=== PATIENT | male | born 1990 | race Caucasian/White ===

== ENCOUNTER 2017-03-09 17:26 | Observation (INO) | payer SELFPAY ==
[2017-03-09] MEDS ORDERED: Famotidine IV* 10 MG/ML 2 ML (20 mg) ONE (18:42)
[2017-03-09] MEDS ORDERED: Lidocaine 2% PF * 5 ML VIAL ONE (18:42)
[2017-03-09] MEDS ORDERED: Dexamethasone IV* 4 MG/ML 1 ML (4 MG) ONE (18:42)
[2017-03-09] MEDS ORDERED: Midazolam* 1 MG/ML 5 ML VIAL (5 MG) ONE (18:42)
[2017-03-09] MEDS ORDERED: fentaNYL* 50 MCG/ML 5 ML VIAL (250 MCG VIAL) ONE (18:42)
[2017-03-09] MEDS ORDERED: Ketorolac INJ* 30 MG/ML 1 ML VIAL ONE (18:42)
[2017-03-09] MEDS ORDERED: Atracurium* 10 MG/ML 10 ML VIAL ONE (18:42)
[2017-03-09] MEDS ORDERED: Ondansetron INJ* 2 MG/ML VIAL ONE (18:42)
[2017-03-09] MEDS ORDERED: Propofol* 10 MG/ML 20 ML BTL IV PUSH ONE (18:42)
--- NOTE | 2017-03-09 18:47 | HP ---
H&P (Free Text) History and Physical: Surgery H & P Asked by [facility] to evaluate a pt. with abdominal pain and a CT suggestive of appendicitis. Mr. Millard is a 26 y.o. male who reports he began to have abdominal pain as a dull ache last night at about midnight. Then about 3 AM it hurt more sharply and in the low abdomen. This got worse and he went to [facility]. There he had a CT scan showing likely early appendicitis. He says he was throwing up a lot since 3 AM. He denies fever, diarrhea or constipation. He has never had anything like this happen before. He is hungry. PMHx: denies ROS: has had flu in past. Meds: denies NKDA FH: cancer in mother's family; appendicitis in siblings SH: neg. tob., neg. EtOH, neg. IVDA PE: general: WDWN male in NAD Vital Signs 03/09/17 17:29 Temperature 98.1 F Pulse Rate 98 Respiratory 20 Rate Blood Pressure 114/71 (mmHg) O2 Sat by Pulse 99 Oximetry HEENT: anicteric sclerae, dry oral mucosa, neg. cervical adenopathy lungs: clear to ausc. heart: reg. abd: good BS, tender with guarding worst in RLQ, but mildly diffusely ext: neg. cyanosis, edema, palpable PT pulses WBC: 15.3 CT: thickened inflammed appendix. A/P: Likely appendicitis. Will proceed to OR for laparoscopic appendectomy. I have explained the nature of surgery, its risks, benefits, and alternatives to the pt. He understands and agrees to proceed. Aren
[2017-03-09] MEDS ORDERED: Bupivacaine 0.25% EPI 200,000* 30 ML SDV ONE (18:50)
[2017-03-09] MEDS ORDERED: ceFOXitin 2 GM IVPREMIX* 2 GM/50 ML BAG ONE (18:55)
[2017-03-09] MEDS ORDERED: Ondansetron INJ* 2 MG/ML VIAL IV PRN ×2 (19:13→20:26)
[2017-03-09] MEDS ORDERED: oxyCODONE/Acetamin 5/325 MG* TAB PO PRN ×3 (19:13→20:25)
[2017-03-09] MEDS ORDERED: fentaNYL* 50 MCG/ML 2 ML VIAL (100 MCG VIAL) IV PRN (19:13)
[2017-03-09] MEDS ORDERED: HYDROmorphone* 1 MG/ML 1 ML SYR IV PRN (19:13)
[2017-03-09] MEDS ORDERED: DiMENhydriNATE IV* 50 MG/ML VIAL IV PUSH PRN (19:13)
--- NOTE | 2017-03-09 19:36 | ED ---
Viviane Almanzar Auryana, scribed for Garry Gage MD on 03/09/17 at 1752 . Abdominal Pain/Male - HPI Summary HPI Summary: 26 year old female presents with abdominal pain starting last night. Patient reports that the pain started in the RLQ but is now more diffuse. He also has nausea, and decreased appetite. He reports no food today - vomited 03:00 AM today. Food aggravates symptoms. Patient was seen at [facility] and [place] [facility] and [place]. - History of Current Complaint Chief Complaint: EDAbdPain Stated Complaint: ABD PAIN COMMING FROM [facility] Time Seen by Provider: 03/09/17 17:38 Hx Obtained From: Patient Onset/Duration: Gradual Onset, Lasting Days - 1, Still Present Timing: Constant Severity Initially: Moderate Severity Currently: Severe Pain Intensity: 8 Pain Scale Used: 0-10 Numeric Location: Diffuse, Discrete At: RLQ - initally but now diffuse Aggravating Factor(s): Food Associated Signs And Symptoms: Positive: Decreased Appetite, Nausea, Vomiting. Negative: Fever - Allergies/Home Medications Allergies/Adverse Reactions: Allergies Allergy/AdvReac Type Severity Reaction Status Date / Time No Known Allergies Allergy Verified 03/09/17 17:33 PMH/Surg Hx/FS Hx/Imm Hx Previously Healthy: Yes Endocrine/Hematology History: Denies: Hx Diabetes Infectious Disease History: No Infectious Disease History: Denies: Traveled Outside the [place] in Last 30 Days - Family History Known Family History: Negative: Cardiac Disease, Hypertension, Diabetes - Social History Alcohol Use: Rare Hx Substance Use: No Substance Use Type: Reports: None Hx Tobacco Use: No Smoking Status (MU): Never Smoked Tobacco Review of Systems Constitutional: Negative Negative: Fever Eyes: Negative ENT: Negative Cardiovascular: Negative Respiratory: Negative Positive: Abdominal Pain, Vomiting, Nausea, Other - decreased appetite Genitourinary: Negative Positive: no symptoms reported Musculoskeletal: Negative Skin: Negative Neurological: Negative Psychological: Normal All Other Systems Reviewed And Are Negative: Yes Physical Exam Triage Information Reviewed: Yes Vital Signs On Initial Exam: Initial Vitals Temp Pulse Resp BP Pulse Ox 98.1 F 98 20 114/71 99 03/09/17 17:29 03/09/17 17:29 03/09/17 17:29 03/09/17 17:29 03/09/17 17:29 Vital Signs Reviewed: Yes Appearance: Positive: Well-Appearing, No Pain Distress, Well-Nourished Skin: Positive: Warm, Skin Color Reflects Adequate Perfusion, Dry Head/Face: Positive: Normal Head/Face Inspection Eyes: Positive: Normal ENT: Positive: Normal ENT inspection Neck: Positive: Supple, Nontender Respiratory/Lung Sounds: Positive: Clear to Auscultation, Breath Sounds Present Cardiovascular: Positive: RRR Abdomen Description: Positive: Soft, Other: - tender in abd - diffuse Bowel Sounds: Positive: Present Musculoskeletal: Positive: Normal, Strength/ROM Intact Neurological: Positive: Normal, Sensory/Motor Intact Psychiatric: Positive: Normal, Affect/Mood Appropriate Diagnostics - Vital Signs Vital Signs Temp Pulse Resp BP Pulse Ox 03/09/17 17:29 98.1 F 98 20 114/71 99 - Laboratory Lab Statement: Any lab studies that have been ordered have been reviewed, and results considered in the medical decision making process. Abdominal Pain Fem Course/Dx - Diagnoses Provider Diagnoses: Appendicitis Discharge - Discharge Plan Condition: Stable Disposition: [facility]ITTED TO [facility] The documentation as recorded by the Viviane hdz Auryana accurately reflects the service I personally performed and the decisions made by Too christianson Richard L, MD.
[2017-03-09] MEDS ORDERED: fentaNYL* 50 MCG/ML 2 ML VIAL (100 MCG VIAL) ONE (19:48)
--- NOTE | 2017-03-09 20:25 | SURGPN ---
Brief Operative Note - Surgery Procedures: 03/09/17 Op Note Pre-op dx: appendicitis Post-op dx: same Procedure: laparoscopic appendectomy Surgeon: Garrett Asst: none Anesth: general Complications: none Findings: gangrenous appendix SCDs on during surgery Abx: given pre-op EBL: 10 cc Pt. tolerated procedure well and was transferred to in a stable condition. CLFoster
[2017-03-09] MEDS: ceFOXitin 2 GM IVPREMIX* 2 GM/50 ML BAG IVPB SCH (22:03)
[2017-03-10 03:40] VITALS: BP 99/50
[2017-03-10] MEDS: ceFOXitin 2 GM IVPREMIX* 2 GM/50 ML BAG IVPB SCH (05:58)
--- NOTE | 2017-03-10 08:52 | PN ---
Progress Note - Progress Note Date of Service: 03/10/17 Note: Surgery Mr. Millard reports he feels better. He is tolerating clear liquid diet. Vital Signs 03/09/17 03/09/17 03/09/17 17:29 20:37 20:40 Temperature 98.1 F 97.7 F Pulse Rate 98 111 109 Respiratory 20 20 20 Rate Blood Pressure 114/71 140/90 131/85 (mmHg) O2 Sat by Pulse 99 100 100 Oximetry 03/09/17 03/09/17 03/09/17 20:45 20:50 21:05 Temperature Pulse Rate 97 103 93 Respiratory 20 16 16 Rate Blood Pressure 128/79 125/72 134/79 (mmHg) O2 Sat by Pulse 100 100 100 Oximetry 03/09/17 03/09/17 03/09/17 21:12 21:21 22:02 Temperature 98.0 F Pulse Rate 100 Respiratory 16 14 15 Rate Blood Pressure 139/83 (mmHg) O2 Sat by Pulse 100 Oximetry 03/09/17 03/09/17 03/10/17 22:30 23:50 00:15 Temperature 97.5 F 97.5 F Pulse Rate 69 74 Respiratory 16 14 14 Rate Blood Pressure 118/64 115/59 (mmHg) O2 Sat by Pulse 99 100 Oximetry 03/10/17 03/10/17 02:12 03:17 Temperature 97.5 F 98.3 F Pulse Rate 68 61 Respiratory 16 16 Rate Blood Pressure 107/50 99/50 (mmHg) O2 Sat by Pulse 98 99 Oximetry Abd: good BS, soft, non-tender except for mild tenderness in RLQ Incision sites: clean and dry with some old blood on strips. No signs infection. Intake & Output 03/09/17 03/10/17 03/10/17 22:59 06:59 14:59 Intake Total 1155 100 Balance 1155 100 Weight 130 lb Intake: IV Fluids 1005 LR 900 NS 50ML, Cefoxitin 2G 50 Oral 150 100 Other: Estimated Void Medium # Voids 1 A/P: POD#1 s/p lap appy. Doing well, can go home on oral abx. CLFoster
--- NOTE | 2017-03-10 09:35 | OP ---
DATE OF OPERATION: 03/09/17 - ROOM #332 DATE OF : 89 SURGEON: Chastity Tucker MD REAL ESTATE ASSESSOR: There was no food and beverage assistant for this case. ANESTHESIOLOGIST: Messi Torres MD ANESTHESIA: General. PRE-OP DIAGNOSIS: Appendicitis. POST-OP DIAGNOSIS: Appendicitis. OPERATIVE PROCEDURE: Laparoscopic appendectomy. DESCRIPTION OF PROCEDURE: This patient is a 26-year-old male who presented to [facility] with signs and symptoms of appendicitis. A CT scan suggested appendicitis and he was transferred to [facility] where signs and symptoms of appendicitis were confirmed. He was prepared for surgery. He was brought to the operating room, placed on the OR table in a supine position and given general anesthesia. The abdomen was prepped and draped in the usual sterile fashion. After infiltrating with local anesthetic, an incision was made in the infraumbilical area. Subcutaneous tissue was divided bluntly, the fascia was grasped and incised, and a 0 Biosyn stitch was placed on either side of the fascial incision. The trocar was inserted into the abdomen and the abdomen was insufflated. Then under direct visualization, a suprapubic and a left flank incision port were placed after infiltrating with local anesthetic. The appendix was visualized in the right lower quadrant as expected and was noted to be gangrenous. Its base was cleared and an Endo ROSIE stapler was fired across the base of the appendix and then an Endo ROSIE stapler was fired across the mesoappendix. The appendix was placed in an EndoCatch bag and withdrawn from the abdomen through the infraumbilical port site. The right lower quadrant and pelvis were then copiously irrigated with saline and the irrigation fluid was evacuated. A brief inspection of the rest of the abdomen revealed no obvious abnormalities. The liver and gallbladder appeared normal. The small and large intestine that were visualized appeared normal. All ports were withdrawn under direct visualization. The previously placed 0 Biosyn broke, so an additional 0 Biosyn was used to close the fascia at the infraumbilical port site and then 4-0 Biosyn was used to close the skin of all incisions. Steri-Strips were applied. All sponge and instrument counts were correct. The patient tolerated the procedure well and was transferred to recovery in a stable condition. [id number]/[facility] #: [id number] [facility]
[2017-03-10] MEDS ORDERED: Amoxicillin/Clavulanate TAB* 875 MG PO SCH (10:00)
== END 2017-03-10 10:15 | disposition home or self-care (01) ==
LOC: ED 17:26 → OR 18:49 → SSU 21:30
PROVIDERS: ADMIT Surgery; ATTEND Surgery
PROC: 0DTJ4ZZ Resection of Appendix, Percutaneous Endoscopic Approach (ICD-10-PCS; principal; 2017-03-09 18:43)
DX: K35.80 Unspecified acute appendicitis (principal)
CPT/HCPCS: 88304; 99282; A9270-GY; C1776; G0378; J0694; J1100; J1885; J2250; J2405; J2704; J3010